=== PATIENT | female | born 1985 | race Two or more races ===

== ENCOUNTER 2022-07-10 12:08 | Emergency (ER) | payer MEDICAID, OTHER ==
[~2022-07-10] VITALS: Ht 167.6 cm; Wt 100.0 kg
[2022-07-10 14:55] VITALS: BP 134/92
[2022-07-10] MEDS ORDERED: ARIP1TAB7 PO (16:04)
== END 2022-07-10 16:07 | disposition home or self-care (01) ==
LOC: ER 12:08
DX: F41.9 Anxiety disorder, unspecified (principal); F32.A Depression, unspecified; Z76.0 Encounter for issue of repeat prescription; Z79.899 Other long term (current) drug therapy; Z88.8 Allergy status to other drugs, medicaments and biological substances

== ENCOUNTER 2022-10-25 09:34 | Inpatient (IN) | payer MEDICAID ==
[~2022-10-25] VITALS: Ht 167.6 cm; Wt 119.9 kg
[~2022-10-25 09:34] MED LIST: ARIP1TAB7 PO
[2022-10-25] MEDS ORDERED: ONDANSETRON HCL 4 MG/2 ML VIAL IV ONE (10:15)
[2022-10-25] MEDS ORDERED: SODIUM CHLORIDE 0.9% 1,000 ML IVB ONE ×2 (10:15→13:45)
[2022-10-25] MEDS ORDERED: MORPHINE SULFATE 4 MG/ML SYR/VIAL IV ONE (10:15)
[2022-10-25] MEDS ORDERED: MORPHINE SULFATE 4 MG/ML SYR/VIAL IM ONE (10:45)
[2022-10-25 10:55] LABS: Basophils # (auto) 0 10 ^3/uL (0-0.2); Basophils % (auto) 0.1 % (0.0-2.0); Eosinophils # (auto) 0 10 ^3/uL (0-0.8); Eosinophils % (auto) 0.1 % (0.0-7.0); Hematocrit 42.9 % (36.0-46.0); Hemoglobin 14.1 g/dL (12.2-16.2); Lymphocytes # (auto) 1.9 10 ^3/uL (0.4-5.4); Lymphocytes % (auto) 14.7 % (10.0-50.0); Mean Corpuscular Hemoglobin 30.2 pg (28.0-32.0); Mean Corpuscular Volume 91.5 fL (80.0-100.0); Monocytes # (auto) 0.8 10 ^3/uL (0-1.3); Monocytes % (auto) 6.3 % (0.0-12.0); Neutrophils # (auto) 10.1 10 ^3/uL (1.6-8.6); Neutrophils % (auto) 78.8 % (37.0-80.0); Nucleated Red Blood Cells % 0.1 %; Red Blood Cells 4.69 10^6/uL (4.0-5.20); Red Cell Distribution Width 14.4 % (11.8-14.3); White Blood Cell 12.7 10^3/uL (4.4-10.8)
[2022-10-25 11:23] LABS: Albumin 3.5 g/dL (3.4-5.0); BUN/Creatinine Ratio 12.1 (10.0-20.0); Bilirubin, Total 0.6 mg/dL (0.2-1.0); Calcium 9.3 mg/dL (8.5-10.1); Total Protein 7.1 g/dL (6.4-8.2)
[2022-10-25 12:40] LABS: Urine Bacteria NONE SEEN /hpf (None Seen); Urine Blood Negative /uL (Negative); Urine Budding Yeast MODERATE /hpf (None Seen); Urine Mucus FEW (None Seen); Urine WBC 6 /hpf (0 - 5)
[2022-10-25] MEDS ORDERED: PIPERACILLIN-TAZOB 3.375GM 100 ML IV ONE (13:45)
[2022-10-25] MEDS ORDERED: D5W/SOD CHL 0.45%/KCL 20MEQ 1,000 ML IV ONE (15:00)
[2022-10-25] MEDS ORDERED: ACETAMINOPHEN 325 MG TAB PO PRN (15:15)
[2022-10-25] MEDS ORDERED: MORPHINE SULFATE INJ 2 MG/ml SYRG IV PRN ×2 (15:15→22:30)
[2022-10-25 15:51] LABS: INR 1.04 (0.9-1.15); Partial Thromboplastin Time 27.1 SEC (24.5-34.5)
[2022-10-25] MEDS: HYDROcodone-ACET 5/325MG TAB PO PRN (16:42)
[2022-10-25 16:54] VITALS: PULSE 92; RESP 16; O2SAT 95
[2022-10-25 20:48] VITALS: PULSE 98; RESP 12; O2SAT 98
[2022-10-25] MEDS: PIPERACILLIN-TAZOB 3.375GM 100 ML IV SCH (20:53)
[2022-10-25] MEDS ORDERED: PIPERACILLIN-TAZO 4.5GM 100 ML IV ONE (22:00)
[2022-10-25] MEDS ORDERED: PANTOPRAZOLE 40 MG/10 ML VIAL INJ IV ONE (22:30)
[2022-10-25] MEDS ORDERED: ONDANSETRON HCL 4 MG/2 ML VIAL IV PRN (22:30)
[2022-10-25] MEDS ORDERED: metroNIDAZOLE 500MG/100ML 100 ML IV ONE (22:30)
[2022-10-25 22:55] LABS: Basophils # (auto) 0 10 ^3/uL (0-0.2); Basophils % (auto) 0.2 % (0.0-2.0); Eosinophils # (auto) 0.1 10 ^3/uL (0-0.8); Hematocrit 39.2 % (36.0-46.0); Hemoglobin 13.1 g/dL (12.2-16.2); Lymphocytes # (auto) 2.7 10 ^3/uL (0.4-5.4); Lymphocytes % (auto) 30.7 % (10.0-50.0); Mean Corpuscular Hemoglobin 30.9 pg (28.0-32.0); Mean Corpuscular Hgb Conc. 33.5 g/dL (32.0-36.0); Mean Corpuscular Volume 92.4 fL (80.0-100.0); Monocytes # (auto) 0.8 10 ^3/uL (0-1.3); Monocytes % (auto) 8.5 % (0.0-12.0); Neutrophils # (auto) 5.3 10 ^3/uL (1.6-8.6); Neutrophils % (auto) 59.6 % (37.0-80.0); Nucleated Red Blood Cells % 0.1 %; Red Blood Cells 4.24 10^6/uL (4.0-5.20); Red Cell Distribution Width 14.2 % (11.8-14.3); White Blood Cell 8.8 10^3/uL (4.4-10.8)
[2022-10-25 23:06] LABS: Albumin 3.3 g/dL (3.4-5.0); BUN/Creatinine Ratio 15.5 (10.0-20.0); Calcium 8.3 mg/dL (8.5-10.1)
[2022-10-25 23:09] LABS: Bilirubin, Total 0.4 mg/dL (0.2-1.0); Total Protein 6.7 g/dL (6.4-8.2)
[2022-10-25] MEDS ORDERED: SODIUM CHLORIDE 0.9% 1,000 ML IV ONE (23:45)
[2022-10-26] VITALS (8 sets, daily range): BP systolic 84–121; BP diastolic 46–85; PULSE 66–87; RESP 14–18; TEMP 97.8–99.6; O2SAT 92–99
[2022-10-26] MEDS: HYDROcodone-ACET 5/325MG TAB PO PRN ×2 (00:21→12:01)
[2022-10-26] MEDS ORDERED: LEVO125T7 PO (00:37)
[2022-10-26] MEDS ORDERED: CLON-1003 PO (00:37)
[2022-10-26] MEDS ORDERED: PANT40T PO (00:37)
[2022-10-26] MEDS: PIPERACILLIN-TAZOB 3.375GM 100 ML IV SCH ×4 (02:09→21:14)
[2022-10-26] MEDS: metroNIDAZOLE 500MG/100ML 100 ML IV SCH ×2 (05:10→13:09)
[2022-10-26 06:50] LABS: Basophils # (auto) 0 10 ^3/uL (0-0.2); Basophils % (auto) 0.3 % (0.0-2.0); Eosinophils # (auto) 0.2 10 ^3/uL (0-0.8); Hematocrit 34.2 % (36.0-46.0); Hemoglobin 11.3 g/dL (12.2-16.2); Lymphocytes # (auto) 2.8 10 ^3/uL (0.4-5.4); Lymphocytes % (auto) 42.6 % (10.0-50.0); Mean Corpuscular Hemoglobin 30.5 pg (28.0-32.0); Mean Corpuscular Hgb Conc. 33.1 g/dL (32.0-36.0); Mean Corpuscular Volume 91.9 fL (80.0-100.0); Monocytes # (auto) 0.7 10 ^3/uL (0-1.3); Monocytes % (auto) 10.8 % (0.0-12.0); Neutrophils # (auto) 2.8 10 ^3/uL (1.6-8.6); Neutrophils % (auto) 43.3 % (37.0-80.0); Nucleated Red Blood Cells % 0.2 %; Red Blood Cells 3.73 10^6/uL (4.0-5.20); Red Cell Distribution Width 14.3 % (11.8-14.3); White Blood Cell 6.6 10^3/uL (4.4-10.8)
[2022-10-26] MEDS ORDERED: ceFAZolin 1GM/50ML 100 ML IV ONE (08:28)
[2022-10-26] MEDS ORDERED: ROCURONIUM 10MG/ML 10ML VIAL IV ONE (08:29)
[2022-10-26] MEDS ORDERED: SUCCINYLCHOLINE CHLORIDE 20 MG/ML 10ML VIAL IV ONE (08:29)
[2022-10-26] MEDS ORDERED: SODIUM CHLORIDE LOCK 10 ML ONE (08:31)
[2022-10-26] MEDS ORDERED: GLYCOPYRROLATE 0.2 MG/ML 1ML VIAL ONE (08:31)
[2022-10-26] MEDS ORDERED: ONDANSETRON HCL 4 MG/2 ML VIAL ONE (08:31)
[2022-10-26] MEDS ORDERED: PROPOFOL 10 MG/ML 20 ML IV ONE (08:31)
[2022-10-26] MEDS ORDERED: MIDAZOLAM HCL 2MG/2ML 2ml VIAL (1mg/ml) ONE (08:31)
[2022-10-26] MEDS ORDERED: fentaNYL CITRATE 100 MCG/2 ML VL ONE (08:31)
[2022-10-26] MEDS ORDERED: MEPERIDINE HCL (50 MG/ML) 1 ML VIAL ONE (08:31)
[2022-10-26] MEDS ORDERED: NEOSTIGMINE 1 MG/ML INJ (10mg/10ML VIAL) ONE (08:31)
[2022-10-26] MEDS ORDERED: DexAMETHasone SOD PHOS 10MG/1ML VIAL INJ ONE (08:31)
[2022-10-26] MEDS: NICOTINE 14 MG/24HR TOPICAL PATCH TD SCH (08:49)
[2022-10-26] MEDS ORDERED: BUPIVACAINE W/ EPINEPH 0.5% INJ 50ML MDV IJ ONE ×2 (09:58→09:59)
[2022-10-26] MEDS ORDERED: HYDROmorphone HCL 2 MG/ML VL/or syr IV PRN ×3 (10:00→10:30)
[2022-10-26] MEDS ORDERED: ONDANSETRON HCL 4 MG/2 ML VIAL IV PRN (10:00)
[2022-10-26] MEDS ORDERED: PANTOPRAZOLE 40 MG/10 ML VIAL INJ IV SCH (10:00)
[2022-10-26] MEDS ORDERED: MORPHINE SULFATE INJ 2 MG/ml SYRG IV PRN (10:30)
[2022-10-26] MEDS ORDERED: KETOROLAC TROMETH 30 MG/ML 1ML VIAL IV ONE (10:30)
[2022-10-26] MEDS: HYDROmorphone HCL 2 MG/ML VL/or syr IV PRN ×5 (10:33→21:23)
[2022-10-26] MEDS: D5W/SOD CHL 0.45%/KCL 20MEQ 1,000 ML IV SCH (12:04)
[2022-10-26 14:52] LABS: Albumin 3.2 g/dL (3.4-5.0); BUN/Creatinine Ratio 12.7 (10.0-20.0); Calcium 8.3 mg/dL (8.5-10.1); Potassium 4.3 mmol/L (3.5-5.1)
[2022-10-26 14:55] LABS: Bilirubin, Total 0.2 mg/dL (0.2-1.0); Total Protein 6.5 g/dL (6.4-8.2)
[2022-10-27] VITALS (8 sets, daily range): BP systolic 107–142; BP diastolic 63–92; PULSE 59–99; RESP 14–20; TEMP 97.9–98.3; O2SAT 95–98
[2022-10-27] MEDS: PIPERACILLIN-TAZOB 3.375GM 100 ML IV SCH ×4 (02:44→20:00)
[2022-10-27] MEDS: D5W/SOD CHL 0.45%/KCL 20MEQ 1,000 ML IV SCH ×3 (02:48→11:30)
[2022-10-27] MEDS: HYDROmorphone HCL 2 MG/ML VL/or syr IV PRN ×3 (05:05→15:15)
[2022-10-27 06:54] LABS: Basophils # (auto) 0 10 ^3/uL (0-0.2); Basophils % (auto) 0.1 % (0.0-2.0); Eosinophils # (auto) 0 10 ^3/uL (0-0.8); Hematocrit 37.9 % (36.0-46.0); Hemoglobin 12.5 g/dL (12.2-16.2); Lymphocytes # (auto) 2.1 10 ^3/uL (0.4-5.4); Lymphocytes % (auto) 14.4 % (10.0-50.0); Mean Corpuscular Hemoglobin 30.3 pg (28.0-32.0); Mean Corpuscular Hgb Conc. 33.1 g/dL (32.0-36.0); Mean Corpuscular Volume 91.5 fL (80.0-100.0); Monocytes # (auto) 1.1 10 ^3/uL (0-1.3); Monocytes % (auto) 7.1 % (0.0-12.0); Neutrophils # (auto) 11.7 10 ^3/uL (1.6-8.6); Neutrophils % (auto) 78.4 % (37.0-80.0); Red Blood Cells 4.14 10^6/uL (4.0-5.20); White Blood Cell 14.9 10^3/uL (4.4-10.8)
[2022-10-27] MEDS: NICOTINE 14 MG/24HR TOPICAL PATCH TD SCH (09:48)
[2022-10-27] MEDS ORDERED: HYDR-4902 PO (18:30)
[2022-10-27] MEDS ORDERED: AUG875T PO (18:30)
[2022-10-27] MEDS: HYDROcodone-ACET 5/325MG TAB PO PRN (20:22)
== END 2022-10-27 20:55 | disposition home or self-care (01) | DRG 234 ==
LOC: ER 09:34 → OVERFLOW 22:24 → EAST 23:47
PROVIDERS: ADMIT Internal Medicine; ATTEND Internal Medicine
PROC: 0DTJ0ZZ Resection of Appendix, Open Approach (ICD-10-PCS; principal; 2022-10-26 09:12)
DX: K35.80 Unspecified acute appendicitis (principal); E03.9 Hypothyroidism, unspecified; F32.A Depression, unspecified; F41.9 Anxiety disorder, unspecified; F17.210 Nicotine dependence, cigarettes, uncomplicated; E66.01 Morbid (severe) obesity due to excess calories; Z87.442 Personal history of urinary calculi; Z68.41 Body mass index [BMI] 40.0-44.9, adult; Z83.3 Family history of diabetes mellitus; Z82.49 Family history of ischemic heart disease and other diseases of the circulatory system; Z88.8 Allergy status to other drugs, medicaments and biological substances; Z90.49 Acquired absence of other specified parts of digestive tract; Z87.11 Personal history of peptic ulcer disease
CPT/HCPCS: 36415; 71045; 74176; 80053; 81001; 81025; 83605; 83690; 85025; 85610; 85730; 86850; 86900; 86901; C9113; G0378; J0330; J0690; J1100; J2250; J2405; J2543; J2704; J3490

== ENCOUNTER 2024-11-01 12:10 | Emergency (ER) | payer MEDICAID ==
[~2024-11-01] VITALS: Ht 167.6 cm; Wt 124.2 kg
[~2024-11-01 12:10] MED LIST changes: -ARIP1TAB7 PO; +ARIP20TA4 PO; +AUG875T PO; +CLON-1003 PO; +HYDR-4902 PO; +LEVO125T7 PO; +PANT40T PO
--- NOTE | 2024-11-01 13:17 | ED.PDOC ---
History of Present Illness HPI Comments 39 y/o F presents with c/c of bilateral flank pain and dysuria. Significant history for nephrolithiasis, PUD s/p rupture and abdominal stomach lining repair, appendectomy, and cholecystectomy. Patient endorses on being diagnosed with bilateral nephrolithiasis 2x months ago through a visit at [facility] 2x months ago. Denies any nausea, vomiting, or further associated symptoms. Chief Complaint: Flank Pain Time Seen by MD: 13:00 Primary Care Provider: MARQUITA Madrid Notes: Nurses Notes, Medications, Allergies Allergies: Coded Allergies: Tramadol (Verified Allergy, Unknown, 07/10/22) Home Meds Active Scripts Amoxicillin & Pot Clavulanate (AUGMENTIN TABLET) 875 Mg Tb, 875 MG PO BID for 5 Days, #10 TAB Prov:JOEL AMBRIZ MD 10/27/22 Hydrocodone-Acetaminophen (Hydrocodone Bitartrate/AC 5-325 mg) 1 Tab Tab, 1 TAB PO Q6HR PRN, #14 TAB Prov:JOEL AMBRIZ MD 10/27/22 Aripiprazole (Abilify) 20 Mg Tab, 0.5 TAB PO BID, #3 TAB 0 Refills Prov:ARI PULLIAM [facility] 07/10/22 Reported Medications Levothyroxine Sodium (Levothyroxine Sodium) 125 Mcg Tab, 1 TAB PO DAILY 10/26/22 Clonazepam (Klonopin) 0.5 Mg Tab, 1 TAB PO TID 10/26/22 Pantoprazole Sodium Sesquihydr (Pantoprazole Sodium) 40 Mg Tab, 1 TAB PO DAILY 10/26/22 Information Source: Patient Mode of Arrival: Ambulatory Severity: Moderate Timing: Months Duration: Since onset Prehospital treatment: None Past Medical History PAST MEDICAL HISTORY: Anxiety, Depression, Kidney Stones, PUD Past Medical History (Other): bipolar disorder Surgical History: Appendectomy, Cholecystectomy, Surgical History (Other): abdominal stomach lining repair surgery s/p ruptured ulcer BUTTER WRAPPER History: Denies all BUTTER WRAPPER Hx Family History Family History: Reviewed,noncontributory to illness, Family hx of DM Social History Smoker: Cigarettes Alcohol: Denies ETOH Use Drugs: Marijuana Lives In: Home All Other Systems: Reviewed and Negative (as per HPI) Physical Exam General Appearance: Moderate Distress HEENT: Normal ENT Inspection, PERRL/EOMI Neck: Full Range of Motion, Non-Tender, Normal, Normal Inspection Respiratory: Chest Non-Tender, Lungs Clear, No Accessory Muscle Use, No Respiratory Distress, Normal Breath Sounds Cardiovascular: No Edema, No JVD, No Murmur, No Gallop, Normal Peripheral Pulses, Regular Rate/Rhythm Breast Exam: Deferred Gastrointestinal: No Organomegaly, Non Tender, No Pulsatile Mass, Normal Bowel Sounds, Soft, Other (Severe CVA tenderness in the right side patient went to [facility] where she was this diagnosed with a very large stone she was scheduled for surgeries but did have called her at about two weeks now and the pain is still the same) Genitalia: Deferred Pelvic: Deferred Rectal: Deferred Extremities: No calf tenderness, Normal capillary refill, Normal inspection, Normal range of motion, Non-tender, No pedal edema Neurologic: Alert, fitness supervisor II-XII nml as Tested, No Motor Deficits, Normal Affect, Normal Mood, No Sensory Deficits Cerebellar Function: Normal Reflexes: Normal Skin: Dry, Normal Color, Warm Peripheral Pulses: 1+ carotid (R), 1+ carotid (L) Lymphatic: No Adenopathy Was a procedure done? Was a procedure done?: No Differential Dx Considerations may include: Large kidney stone possible UTI X-Ray, Labs, Meds, VS Vital Signs Date Time Temp Pulse Resp B/P (MAP) Pulse Ox O2 Delivery O2 Flow Rate FiO2 11/01/24 14:11 88 18 114/75 11/01/24 13:45 95 17 140/80 11/01/24 13:34 98.8 105 16 140/82 (101) 98 98.8 11/01/24 12:12 97.4 117 18 147/93 97 97.4 Lab Test 11/01/24 13:27 11/01/24 12:19 Range/Units White Blood Count 7.5 4.4-10.8 10^3/uL Red Blood Count 5.16 4.0-5.20 10^6/uL Hemoglobin 15.7 12.2-16.2 g/dL Hematocrit 46.8 H 36.0-46.0 % Mean Corpuscular Volume 90.6 80.0-100.0 fL Mean Corpuscular Hemoglobin 30.4 28.0-32.0 pg Mean Corpuscular Hemoglobin Concent 33.5 32.0-36.0 g/dL Red Cell Distribution Width 14.0 11.8-14.3 % Platelet Count 231 140-450 10^3/uL Mean Platelet Volume 7.8 6.9-10.8 fL Neutrophils (%) (Auto) 54.8 37.0-80.0 % Lymphocytes (%) (Auto) 32.6 10.0-50.0 % Monocytes (%) (Auto) 11.3 0.0-12.0 % Eosinophils (%) (Auto) 1.0 0.0-7.0 % Basophils (%) (Auto) 0.3 0.0-2.0 % Neutrophils # (Auto) 4.1 1.6-8.6 10 ^3/uL Lymphocytes # (Auto) 2.5 0.4-5.4 10 ^3/uL Monocytes # (Auto) 0.9 0-1.3 10 ^3/uL Eosinophils # (Auto) 0.1 0-0.8 10 ^3/uL Basophils # (Auto) 0 0-0.2 10 ^3/uL Nucleated Red Blood Cells 0.1 % Sodium Level 139 136-145 mmol/L Potassium Level 3.4 L 3.5-5.1 mmol/L Chloride Level 106 98-107 mmol/L Carbon Dioxide Level 22 20-31 mmol/L Anion Gap 11 5-15 Blood Urea Nitrogen 10 9-23 mg/dL Creatinine 0.98 0.550-1.02 mg/dL Glomerular Filtration Rate Calc 76 >90 mL/min BUN/Creatinine Ratio 10.2 10.0-20.0 Serum Glucose 83 74-106 mg/dL Calcium Level 9.7 8.7-10.4 mg/dL Magnesium Level 2.0 1.6-2.6 mg/dL Urine Color Colorless Yellow Urine Clarity Turbid H Clear Urine pH 6.5 5.0-9.0 Urine Specific [place] 1.017 1.001-1.035 Urine Protein Trace H Negative Urine Ketones Negative Negative Urine Blood Trace H Negative /uL Urine Nitrite Negative Negative Urine Bilirubin Negative Negative Urine Urobilinogen Normal Negative mg/dL Urine Leukocyte Esterase Trace Negative /uL Urine RBC 37 0 - 4 /hpf Urine Microscopic WBC 19 H 0-5 /HPF Urine Squamous Epithelial Cells Many <5 /hpf Urine Bacteria Few H None Seen /hpf Urine Mucus Few None Seen Urine Glucose Normal Normal mg/dL Current Medications Medications (Trade) Dose Ordered Sig/Meron Route Start Time Stop Time Status Last Admin Sodium Chloride 1,000 ml @ 1,000 mls/hr Q1H ONCE IVB 11/01/24 13:00 11/01/24 13:59 DC 11/01/24 13:53 Hydromorphone HCl (Dilaudid Injection) 0.5 mg ONCE ONCE IV 11/01/24 13:00 11/01/24 13:01 DC 11/01/24 13:45 Ketorolac Tromethamine (Toradol Injection) 30 mg ONCE ONCE IV 11/01/24 13:00 11/01/24 13:01 DC 11/01/24 13:45 Tamsulosin HCl (Flomax) 0.8 mg ONCE ONCE PO 11/01/24 13:00 11/01/24 13:01 DC 11/01/24 13:44 X-Ray, Labs, Meds, VS Comment Patient came in complaining of flank pain and painful urination the urine is negative the CBC is normal the BN P shows potassium of 3.4 and magnesium [address] of the abdomen shows multiple punctate calculus on both sides mostly on the right with no hydronephrosis on the left it is at the UVJ junction about to pass there is also umbilical hernia Patient has been hydrated and medicated she will be discharged home to follow up with her PCP she needs to continue her medication Time of 1ST Reevaluation: 13:30 Reevaluation 1ST: Unchanged Time of 2ND Reevaluation: 14:34 Reevaluation 2ND: Improved Consultation: PCP Patient Education/Counseling: Diagnosis, Treatment, Prognosis, Need For Follow Up Family Education/Counseling: Diagnosis, Treatment, Prognosis, Need For Follow Up, No Family Present SEPSIS Sepsis Screen Date sepsis recognized/suspect: Nov 01, 2024 Time Sepsis recognized/suspect: 1214 Recent Procedure: No On Antibiotic Therapy: Yes Respiratory Rate >20: No Heart Rate >90: Yes Temp<36 C (96.8 F) or >38.3 C: No SBP <90 or MAP <65 mmHG: No New Acute Mental Status Change: No Is the patient on CPAP, BIPAP,: No Physician Orders Heplock Iv (11/01/24 12:54) Ct Ab Pel Wo Con-No Oral Or Iv (11/01/24 13:03) Vital Signs Date Time Temp Pulse Resp B/P (MAP) Pulse Ox O2 Delivery O2 Flow Rate FiO2 11/01/24 14:11 88 18 114/75 11/01/24 13:45 95 17 140/80 11/01/24 13:34 98.8 105 16 140/82 (101) 98 98.8 11/01/24 12:12 97.4 117 18 147/93 97 97.4 Laboratory Tests Test 11/01/24 13:27 White Blood Count 7.5 10^3/uL (4.4-10.8) Medications Medications Dose Ordered Sig/Meron Route Start Time Stop Time Status Last Admin Dose Admin Hydromorphone HCl 0.5 mg ONCE ONCE IV 11/01/24 13:00 11/01/24 13:01 DC 11/01/24 13:45 Ketorolac Tromethamine 30 mg ONCE ONCE IV 11/01/24 13:00 11/01/24 13:01 DC 11/01/24 13:45 Sodium Chloride 1,000 ml @ 1,000 mls/hr Q1H ONCE IVB 11/01/24 13:00 11/01/24 13:59 DC 11/01/24 13:53 Tamsulosin HCl 0.8 mg ONCE ONCE PO 11/01/24 13:00 11/01/24 13:01 DC 11/01/24 13:44 Departure 1 Departure Time of Disposition: 14:34 Impression: Primary Impression: Kidney stone on left side Additional Impressions: Kidney stone on right side Umbilical hernia Disposition: 01 HOME / SELF CARE / HOMELESS Condition: Fair Additional Instructions: Continue your medication Discharged With: Self Critical Care Note Critical Care Time?: No Stability Stability form required: No Heart Score Heart Score: Heart Score Response (Comments) Value History N/A 0 EKG N/A 0 Age N/A 0 Risk Factors N/A 0 Troponin N/A 0 Total 0 I personally scribed for TEE LONGORIA MD ([email or web address]) on 11/01/24 at 13:17. Electronically submitted by Nick Henderson [email or web address]). TEE LONGORIA MD Nov 01, 2024 13:17
[2024-11-01 13:34] VITALS: TEMP 98.8; O2SAT 98
[2024-11-01 13:44] LABS: Hematocrit 46.8 % (36.0-46.0); Hemoglobin 15.7 g/dL (12.2-16.2); Mean Corpuscular Hemoglobin 30.4 pg (28.0-32.0); Mean Corpuscular Volume 90.6 fL (80.0-100.0); Nucleated Red Blood Cells % 0.1 %
[2024-11-01] MEDS: TAMSULOSIN HYDROCHLORIDE 0.4 MG CAP PO ONE (13:44)
[2024-11-01] MEDS: KETOROLAC TROMETH 30 MG/ML 1ML VIAL IV ONE (13:45)
[2024-11-01] MEDS: HYDROmorphone HCL 2 MG/ML VL/or syr IV ONE (13:45)
[2024-11-01 13:47] LABS: Urine Protein, UAD TRACE (Negative)
[2024-11-01 13:52] LABS: Chloride 106 mmol/L (98-107); Sodium 139 mmol/L (136-145)
[2024-11-01 13:53] LABS: Anion Gap 11 (5-15); Calcium 9.7 mg/dL (8.7-10.4); Carbon Dioxide 22 mmol/L (20-31)
[2024-11-01] MEDS: SODIUM CHLORIDE 0.9% 1,000 ML IVB ONE (13:53)
[2024-11-01 13:58] LABS: BUN/Creatinine Ratio 10.2 (10.0-20.0); Blood Urea Nitrogen 10 mg/dL (9-23); Glucose 83 mg/dL (74-106)
[2024-11-01 13:59] LABS: Magnesium 2.0 mg/dL (1.6-2.6); Potassium 3.4 mmol/L (3.5-5.1)
[2024-11-01 14:11] VITALS: BP 114/75; PULSE 88; RESP 18
--- NOTE | 2024-11-01 14:13 | DVH ---
Exam: CT CT AB PEL WO CON-NO ORAL OR IV History: LARGE KIDNEY STONE Comparison Study: CT CT AB PEL WO CON-NO ORAL OR IV on DOS: 10/25/22 TECHNIQUE: Multidetector CT of the abdomen was performed from lung bases to pubic symphysis. Imaging was performed without IV contrast. Axial, coronal and sagittal multiplanar reformats were obtained fr om the axial data set by the technologist. Radiation Dose Information: CT Dose: CTDI volume is 27.1 mGy. Dose-length product is 1463.28 mGy*cm FINDINGS: Evaluation of solid organs is limited due to lack of intravenous contrast use. Findings: Lung Bases: No acute or significant lung base finding. Normal heart size. No pleural or pericardial effusion. Liver: The liver is normal in size. No focal lesions. Gallbladder and Biliary Tree: Unremarkable Spleen: Unremarkable Pancreas: The pancreas is grossly normal in appearance. Adrenal Glands: Unremarkable Kidneys: Bilateral renal calculi. There are numerous punctate right renal calculi with a 7-8 mm calc ulus at the right ureteropelvic junction. There are numerous punctate calculi in the left kidney larg est measures 6-7 mm. No hydronephrosis on the left. Bladder: No bladder calculi. Bowel: The stomach is grossly normal in appearance. Small bowel and colon are normal in caliber and d istribution. The appendix is not visualized; however, no secondary findings of acute appendicitis id entified. Ascites: Absent Lymphadenopathy: No mesenteric, retroperitoneal or periportal lymphadenopathy. Abdominal Wall and Mesentery: Umbilical hernia measuring 6.4 x 3.1 cm containing bowel. Vasculature: The visualized abdominal aorta is normal in size and caliber. Evaluation of abdominal a nd pelvic vessels is limited due to lack of intravenous contrast. Pelvic Organs: Unremarkable. There are several pelvic phleboliths bilaterally. Musculoskeletal: No aggressive focal bony lesions, acute fractures or dislocation. Soft tissues: Unremarkable IMPRESSION: 1. No bladder calculi. 2. Bilateral intrarenal calculi. 7-8 mm calculi at the right ureteropelvic junction. Several punctat e intrarenal calculi in the left kidney largest measures 6-7 mm and there is no hydronephrosis on the left. 3. There appears to be a area of diastasis recti at the umbilicus. 6.4 x 3.1 cm collection of bowel d isplacing the fascia rajesh anteriorly. HS:Y Radiation optimization: All CT scans at this facility use at least one of these dose optimization shravan hniques: automated exposure control mA and/or kV adjustment per patient size (includes targeted exam s where dose is matched to clinical indication) or iterative reconstruction.
[2024-11-01] MEDS ORDERED: HYDR-4902 PO ×3 (14:36→15:31)
== END 2024-11-01 15:41 | disposition home or self-care (01) ==
LOC: ER 12:16
DX: N20.0 Calculus of kidney (principal); K42.9 Umbilical hernia without obstruction or gangrene; F12.90 Cannabis use, unspecified, uncomplicated; F17.210 Nicotine dependence, cigarettes, uncomplicated; F41.9 Anxiety disorder, unspecified; F32.A Depression, unspecified; Z90.49 Acquired absence of other specified parts of digestive tract; Z88.5 Allergy status to narcotic agent; Z87.442 Personal history of urinary calculi; Z79.899 Other long term (current) drug therapy; Z79.890 Hormone replacement therapy; Z87.11 Personal history of peptic ulcer disease
CPT/HCPCS: 36415; 74176; 80048; 81001; 83735; 85025; 96361; 96374; 96375; 99285; J1171; J1885; J7030